=== PATIENT | male | born 1945 | race Caucasian/White ===

== ENCOUNTER 2016-10-25 08:34 | Day surgery (SDC) | payer MEDICARE, OTHER ==
--- NOTE | ~2016-10-25 | EGD ---
EGD REPORT [facility] [address] [address] NAME: ANTHONY DORMAN : [birth year] STATUS : REG [facility]#: [id number] AGE: 70 ADM/REG DATE : 10/25/16 MR#: [id number] REPORT SERV DATE: 10/25/16 DICTATED BY: JOSEPHINE SHAH DATE: 10/25/16 REPORT STATUS : Draft [facility]ANS[facility]: [facility] DATE: 10/25/16 Endoscopy Center Patient Name: Anthony Dorman. Date of : 1945 Attending MD: JOSEPHINE SHHA MD Procedure Date No Time: 10/25/2016 Procedure: Colonoscopy Indications: Screening for colorectal malignant neoplasm (last colonoscopy > 10 years ago) Referring MD: DEREK HOLLY MD Medicines: Propofol per Anesthesia Complications: No immediate complications. Estimated blood loss: None. Procedure: Pre-Anesthesia Assessment: - After reviewing the risks and benefits, the patient was deemed in satisfactory condition to undergo the procedure. - Prior to the procedure, a History and Physical was performed, and patient medications and allergies were reviewed. The patient's tolerance of previous anesthesia was also reviewed. The risks and benefits of the procedure and the sedation options and risks were discussed with the patient. All questions were answered, and informed consent was obtained. Prior Anticoagulants: The patient has taken no previous anticoagulant or antiplatelet agents. ASA Grade Assessment: III - A patient with severe systemic disease. After reviewing the risks and benefits, the patient was deemed in satisfactory condition to undergo the procedure. After I obtained informed consent, the scope was passed under direct vision. Throughout the procedure, the patient's blood pressure, pulse, and oxygen saturations were monitored continuously. The CF [id number] was introduced through the anus and advanced to the cecum, identified by appendiceal orifice and ileocecal valve. The colonoscopy was somewhat difficult due to significant looping. Successful completion of the procedure was aided by straightening and shortening the scope to obtain bowel loop reduction. The ileocecal valve and appendiceal orifice were photographed. The patient tolerated the procedure well. The quality of the bowel preparation was adequate. The bowel preparation used was polyethylene glycol (PEG). Scope withdrawal time was greater than 7 minutes. Findings: EGD REPORT [address] [place]. [address] NAME: ANTHONY DORMAN : [birth year] STATUS : REG [facility] [place] [place] PAT#: [id number] AGE: 70 ADM/REG DATE : 10/25/16 MR#: [id number] REPORT SERV DATE: 10/25/16 DICTATED BY: JOSEPHINE SHAH DATE: 10/25/16 REPORT STATUS : Draft TRANSCRIBED BY: [employer] DATE: 10/25/16 The perianal and digital rectal examinations were normal. Pertinent negatives include normal sphincter tone. Non-bleeding internal hemorrhoids were found during retroflexion and were small and Grade I (internal hemorrhoids that do not prolapse). Multiple small-mouthed diverticula were found in the sigmoid colon and in the descending colon. The exam was otherwise without abnormality. Impression: - Non-bleeding internal hemorrhoids. - Moderate diverticulosis in the sigmoid colon and in the descending colon. - The examination was otherwise normal. Recommendation: - Discharge patient to home (ambulatory). - Return to previous diet. - Continue present medications. - Collect Hemoccults on three spontaneously passed stools annually. - Repeat colonoscopy in 10 years for screening purposes. - Return to GI clinic PRN. - Patient has a contact number available for emergencies. The signs and symptoms of potential delayed complications were discussed with the patient. Return to normal activities tomorrow. Written discharge instructions were provided to the patient. Procedure Code(s): --- Professional --- G0121, Colorectal cancer screening; colonoscopy on individual not meeting criteria for high risk Diagnosis Code(s): --- Professional --- K64.0, First degree hemorrhoids K57.30, Diverticulosis of large intestine without perforation or abscess without bleeding Z12.11, Encounter for screening for malignant neoplasm of colon CPT copyright 2013 [employer]. All rights reserved. The codes documented in this report are preliminary and upon apparel cutter review may be revised to meet current compliance requirements. JOSEPHINE SHAH MD 10/25/2016 10:40 AM This report has been signed electronically. EGD REPORT [facility] [address] [address] NAME: ANTHONY DORMAN Skylar : [birth year] STATUS : REG [facility] [place] [place] PAT#: [id number] AGE: 70 ADM/REG DATE : 10/25/16 MR#: [id number] REPORT SERV DATE: 10/25/16 DICTATED BY: JOSEPHINE SHAH DATE: 10/25/16 REPORT STATUS : Draft TRANSCRIBED BY: [employer] DATE: 10/25/16 Number of Addenda: 0 Note Initiated On: 10/25/2016 9:48 AM Scope Withdrawal Time 0 hours 7 minutes 46 seconds [address] [address]
--- NOTE | ~2016-10-25 | EGD ---
EGD REPORT [facility] [address] [place] [address] NAME: ANTHONY DORMAN : [birth year] STATUS : REG [facility]#: [id number] AGE: 70 ADM/REG DATE : 10/25/16 MR#: [id number] REPORT SERV DATE: 10/25/16 DICTATED BY: JOSEPHINE SHAH DATE: 10/25/16 REPORT STATUS : Draft [facility]: [facility] DATE: 10/25/16 Endoscopy Center Patient Name: Anthony Dorman. Date of : 1945 Attending MD: JOSEPHINE SHAH MD Procedure Date No Time: 10/25/2016 Procedure: Upper GI endoscopy Indications: Heartburn, Eructation, Nausea Referring MD: DEREK HOLLY MD Medicines: Propofol per Anesthesia Complications: No immediate complications. Estimated blood loss: None. Procedure: Pre-Anesthesia Assessment: - After reviewing the risks and benefits, the patient was deemed in satisfactory condition to undergo the procedure. - Prior to the procedure, a History and Physical was performed, and patient medications and allergies were reviewed. The patient's tolerance of previous anesthesia was also reviewed. The risks and benefits of the procedure and the sedation options and risks were discussed with the patient. All questions were answered, and informed consent was obtained. Prior Anticoagulants: The patient has taken no previous anticoagulant or antiplatelet agents. ASA Grade Assessment: III - A patient with severe systemic disease. After reviewing the risks and benefits, the patient was deemed in satisfactory condition to undergo the procedure. After obtaining informed consent, the endoscope was passed under direct vision. Throughout the procedure, the patient's blood pressure, pulse, and oxygen saturations were monitored continuously. The GIF [id number] was introduced through the mouth, and advanced to the third part of duodenum. The upper GI endoscopy was accomplished without difficulty. The patient tolerated the procedure well. Findings: The Z-line was irregular. Biopsies were taken with a cold forceps for histology. Estimated blood loss: none. Diffuse moderate inflammation characterized by erythema and granularity was found in the gastric antrum. Biopsies were taken with a cold forceps for histology. Estimated blood loss: none. The gastroesophageal junction (on retroflexion) was normal. The examined duodenum was normal. EGD REPORT [address] [address] NAME: ANTHONY DORMAN : [birth year] STATUS : REG [facility] [place] PAT#: [id number] AGE: 70 ADM/REG DATE : 10/25/16 MR#: [id number] REPORT SERV DATE: 10/25/16 DICTATED BY: JOSEPHINE SHAH DATE: 10/25/16 REPORT STATUS : Draft TRANSCRIBED BY: [employer] DATE: 10/25/16 Impression: - Z-line irregular,. Biopsied. - Gastritis. Biopsied. - Normal gastroesophageal junction. - Normal examined duodenum. - Non-erosive esophageal reflux (NERD) disease present. - Asymptomatic cholelithiasis. Recommendation: - Discharge patient to home (ambulatory). - Return to previous diet. - Continue present medications including Prilosec (omeprazole) 40 mg twice daily before breakfast and supper for a month then try to wean to 40 mg once daily. - Await pathology results. - Perform a colonoscopy today. - Patient has a contact number available for emergencies. The signs and symptoms of potential delayed complications were discussed with the patient. Return to normal activities tomorrow. Written discharge instructions were provided to the patient. Procedure Code(s): --- Professional --- 04069, Esophagogastroduodenoscopy, flexible, transoral; with biopsy, single or multiple Diagnosis Code(s): --- Professional --- K22.8, Other specified diseases of esophagus K29.70, Gastritis, unspecified, without bleeding K21.9, Gastro-esophageal reflux disease without esophagitis R12, Heartburn R14.2, Eructation R11.0, Nausea CPT copyright 2013 [employer]. All rights reserved. The codes documented in this report are preliminary and upon engine manager review may be revised to meet current compliance requirements. JOSEPHINE SHAH MD 10/25/2016 10:16 AM This report has been signed electronically. Number of Addenda: 0 Note Initiated On: 10/25/2016 9:58 AM Scope Withdrawal Time 0 hours 0 minutes 0 seconds EGD REPORT [place] [address] [address] NAME: DANDYANTHONY : [birth year] STATUS : REG [facility] [place] PAT#: [id number] AGE: 70 ADM/REG DATE : 10/25/16 MR#: [id number] REPORT SERV DATE: 10/25/16 DICTATED BY: JOSEPHINE SHAH DATE: 10/25/16 REPORT STATUS : Draft TRANSCRIBED BY: [employer] DATE: 10/25/16 [address] [id number]
[~2016-10-25 08:34] MED LIST: ASAB PO; BUSPAR10 PO; DITRO5 PO; DRY EYES OP; FLEX PO; FLOMAX4 PO; FOLIC PO; GLUCOPHAGE1000 MG PO; GLUCPH PO; IBU400 PO; IRON325 MG PO; LEVOTHYROXIN50 MCG PO; LIPITOR20 PO; LOFIB160 PO; LOPID6 PO; LYRICA50 PO; MCZ125 PO; NIACIN 500 PO; NORV5 PO; PLAVIX PO; PRAVACHOL80 MG PO; PRILO PO; PRIN10 PO; PRIN5 PO; SANTYL250 MG/GM TOP; TEMOVATE CREAM30 GM TOP; UROXATRAL PO; VANCO1P IV; VIAGRA100 MG PO; VITAMIN D31000 UNIT PO; WELL75 PO; ZOL100 PO; ZOSYN375 IV; ZOSYN4.5 IV
== END 2016-10-25 23:59 | disposition home or self-care (01) ==
LOC: DMU 08:34
PROVIDERS: Internal Medicine Gastroenterology
PROC: 0DJD8ZZ Inspection of Lower Intestinal Tract, Via Natural or Artificial Opening Endoscopic (ICD-10-PCS; principal; 2016-10-25 10:00)
PROC: 0DJ08ZZ Inspection of Upper Intestinal Tract, Via Natural or Artificial Opening Endoscopic (ICD-10-PCS; 2016-10-25 10:00)
DX: Z12.11 Encounter for screening for malignant neoplasm of colon (principal); K64.0 First degree hemorrhoids; K57.30 Diverticulosis of large intestine without perforation or abscess without bleeding; K22.8 Other specified diseases of esophagus; K29.70 Gastritis, unspecified, without bleeding; K21.9 Gastro-esophageal reflux disease without esophagitis; R12 Heartburn; I10 Essential (primary) hypertension; F43.10 Post-traumatic stress disorder, unspecified; R14.2 Eructation; E03.9 Hypothyroidism, unspecified; E11.9 Type 2 diabetes mellitus without complications; H91.90 Unspecified hearing loss, unspecified ear; R11.0 Nausea; I73.9 Peripheral vascular disease, unspecified; Z87.891 Personal history of nicotine dependence; Z98.890 Other specified postprocedural states; Z97.4 Presence of external hearing-aid; Z89.612 Acquired absence of left leg above knee; Z89.611 Acquired absence of right leg above knee; Z97.16 Presence of artificial legs, bilateral (complete) (partial); Z79.82 Long term (current) use of aspirin; Z79.84 Long term (current) use of oral hypoglycemic drugs; Z79.899 Other long term (current) drug therapy
CPT/HCPCS: 43239; G0121; 82962; 88305